=== PATIENT | male | born 1955 | race Caucasian/White ===

== ENCOUNTER 2025-03-05 22:54 | Inpatient (IN) | payer BC, MEDICARE, SELFPAY ==
[2025-03-05 19:05] VITALS: BP 162/92
[2025-03-05 19:11] VITALS: BMI 32.9
[2025-03-05 19:18] VITALS: BP 164/101
--- NOTE | 2025-03-05 19:30 | ED.GENMED ---
History of Present Illness
<Bill Daniels PA-C - Last Filed: 03/05/25 22:01>
General
Chief Complaint: Cancer Problem
Source: patient
Exam Limitations: none
Time Seen by Provider: 03/05/25 19:13
History of Present Illness
History of Present Illness:
69-year-old male with history of lung cancer currently on Taxol and recently stopped immunotherapy with Keytruda presents with increasing pain and worsening rash to the hands and feet. This has progressively gotten worse over the last 4 weeks since
starting the Taxol. No new shortness of breath or chest pain. No fever. No mouth discomfort. He has been using topical steroids as well as oral prednisone taper he also has been taking oxycodone without any significant relief of his pain. No
prior diagnosis of CHF but does have a history of CAD requiring stent in his LAD. He is also on metformin for prediabetes
Phy Exam
<Bill Daniels PA-C - Last Filed: 03/05/25 22:01>
Physical Exam
Physical Exam:
General: Well-appearing but uncomfortable male no acute respiratory distress
HEENT: Normal cephalic atraumatic mucosa moist no oral lesions
Heart: Regular rate and rhythm
Lungs: Clear no wheeze
Extremities: No cyanosis but there is edema noted in bilateral lower extremities
Skin: Patches of erythema that are painful and tender over the bilateral hands and feet
Course
<Bill Daniels PA-C - Last Filed: 03/05/25 22:01>
Orders/Labs/Results
Orders:
Orders
03/05/25 19:29
Complete Blood Count/With Diff Urgent
Comprehensive Metabolic Panel Urgent
NT-proBNP Urgent
Serum Osmolality Urgent
Comment: ADD ON
Dexamethasone Sod Phosphate [Decadron] 10 mg IV NOW STA
HYDROmorphone [Dilaudid] 1 mg IV NOW STA
03/05/25 19:34
CR Chest Portable - 1 View Urgent
Comment:
Reason For Exam: sob
Reason Study Needs to be Portable: Patient Unstable
03/05/25 20:52
HYDROmorphone [Dilaudid] 0.5 mg IV NOW STA
03/05/25 21:56
Add On- LAB Urgent
Tests Added?: serum OSM
Osmolality, Random Urine Urgent
Date Specimen was Collected: 03/05/25
Time Specimen was Collected: 21:58
Urine Sodium Urgent
Date Specimen was Collected: 03/05/25
Time Specimen was Collected: 21:58
03/05/25 21:57
Urinalysis Reflex To Culture Urgent
Date Specimen was Collected: 03/05/25
Time Specimen was Collected: 21:58
Abnormal Lab Results
03/05/25
19:29
RBC 3.50 L 10^6/uL
(4.70-6.10)
Hgb 11.7 L g/dL
(13.0-18.0)
Hct 33.4 L %
(39.0-52.0)
MCV 95.4 H fL
(80.0-94.0)
MCH 33.4 H pg
(27.0-31.0)
RDW 16.4 H %
(11.5-14.5)
Absolute Neuts (auto) 7.3 H 10^3/uL
(1.4-6.5)
Absolute Lymphs (auto) 1.1 L 10^3/uL
(1.2-3.4)
Neutrophils % 83.4 H %
(42.2-75.2)
Lymphocytes % 12.2 L %
(20.5-51.1)
Sodium 127 L mmol/L
(135-145)
Chloride 90 L mmol/L
(98-107)
Creatinine 0.6 L mg/dL
(0.7-1.3)
Glucose 120 H mg/dl
(70-99)
ALT 59 H U/L
(0-50)
03/05/25 19:29
03/05/25 19:29
Vital Signs
Initial and Last Documented VS:
Initial Vital Signs
Temp Pulse Resp BP Pulse Ox
98.0 F 78 20 162/92 98
03/05/25 19:05 03/05/25 19:05 03/05/25 19:05 03/05/25 19:05 03/05/25 19:05
Last Documented Vital Signs
Temp Pulse Resp BP Pulse Ox
98.0 F 86 16 158/91 93
03/05/25 19:05 03/05/25 21:30 03/05/25 20:45 03/05/25 20:00 03/05/25 21:30
<Poli Donald MD - Last Filed: 03/05/25 20:03>
Orders/Labs/Results
Orders:
Orders
03/05/25 19:29
Complete Blood Count/With Diff Urgent
Comprehensive Metabolic Panel Urgent
NT-proBNP Urgent
Serum Osmolality Urgent
Comment: ADD ON
Dexamethasone Sod Phosphate [Decadron] 10 mg IV NOW STA
HYDROmorphone [Dilaudid] 1 mg IV NOW STA
03/05/25 19:34
CR Chest Portable - 1 View Urgent
Comment:
Reason For Exam: sob
Reason Study Needs to be Portable: Patient Unstable
03/05/25 20:52
HYDROmorphone [Dilaudid] 0.5 mg IV NOW STA
03/05/25 21:56
Add On- LAB Urgent
Tests Added?: serum OSM
Osmolality, Random Urine Urgent
Date Specimen was Collected: 03/05/25
Time Specimen was Collected: 21:58
Urine Sodium Urgent
Date Specimen was Collected: 03/05/25
Time Specimen was Collected: 21:58
03/05/25 21:57
Urinalysis Reflex To Culture Urgent
Date Specimen was Collected: 03/05/25
Time Specimen was Collected: 21:58
Abnormal Lab Results
03/05/25
19:29
RBC 3.50 L 10^6/uL
(4.70-6.10)
Hgb 11.7 L g/dL
(13.0-18.0)
Hct 33.4 L %
(39.0-52.0)
MCV 95.4 H fL
(80.0-94.0)
MCH 33.4 H pg
(27.0-31.0)
RDW 16.4 H %
(11.5-14.5)
Absolute Neuts (auto) 7.3 H 10^3/uL
(1.4-6.5)
Absolute Lymphs (auto) 1.1 L 10^3/uL
(1.2-3.4)
Neutrophils % 83.4 H %
(42.2-75.2)
Lymphocytes % 12.2 L %
(20.5-51.1)
Sodium 127 L mmol/L
(135-145)
Chloride 90 L mmol/L
(98-107)
Creatinine 0.6 L mg/dL
(0.7-1.3)
Glucose 120 H mg/dl
(70-99)
ALT 59 H U/L
(0-50)
03/05/25 19:29
03/05/25 19:29
Vital Signs
Initial and Last Documented VS:
Initial Vital Signs
Temp Pulse Resp BP Pulse Ox
98.0 F 78 20 162/92 98
03/05/25 19:05 03/05/25 19:05 03/05/25 19:05 03/05/25 19:05 03/05/25 19:05
Last Documented Vital Signs
Temp Pulse Resp BP Pulse Ox
98.0 F 86 16 158/91 93
03/05/25 19:05 03/05/25 21:30 03/05/25 20:45 03/05/25 20:00 03/05/25 21:30
<Bill Daniels PA-C - Last Filed: 03/05/25 22:01>
*Pulse Oximetry
SaO2: 95
Oxygen Mode of Delivery: Room air
Patient hypoxic: no
*Critical Care Note
Total Time (30-74mins, 75-104mins- exclusive of procedures): Not Applicable
<Bill Daniels PA-C - Last Filed: 03/05/25 22:01>
Update Note
Update Note:
I spoke with patient's primary oncologist, Dr. Sal at cell phone number . He feels as though the patient's symptoms are from that of worsening allergic reaction to the Taxol when he is developing hands and feet syndrome.
Outpatient treatment has proven to be ineffective for him with oxycodone prednisone by mouth and topical steroids. Oncology recommended admission for pain control and supportive care. Fluids ordered pain medicine ordered
ED Attending Note
<Bill Daniels PA-C - Last Filed: 03/05/25 22:01>
-
Portions of this chart may have been created with voice recognition software.� Occasional wrong word or��sound alike� substitutions may have occurred due to the inherent limitations of voice recognition software.
<Poli Donald MD - Last Filed: 03/05/25 20:03>
ED Attending Note
Patient seen and examined by attending physician: Yes
I performed the substantive portion of visit, reviewed & personally made and approve the management plan that is documented in note by myself or BRITNEY.: Yes
ED Attending Note:
I have seen and evaluated the patient with a [id number] encounter. I have spoken to the [BRITNEY] and involved in the medical history, the physical exam, medical decision making.
Evaluation and management service: agree unless noted differently below.
Results interpretation: agree unless noted differently below.
69-year-old with history of lung cancer presenting to the emergency department with swelling and redness to his hands and feet. Patient is currently on chemotherapy. He went to his oncologist about it was related to his Keytruda so they stopped
the Keytruda. However symptoms have been persistent. He discussed with the oncologist again who said that is likely from Taxol. They will stop Taxol. We did discuss with patient's oncologist who recommended admission for pain management. It is
supportive care. Patient denies any fevers chills rash to his eyes mouth genitals. No sloughing of the skin. No other new medications. No antibiotics. On my evaluation patient is resting comfortably. He does have swelling to both his hands and
feet with associated redness. No sloughing of the skin. No signs of fluctuance induration or signs consistent with cellulitis. Will check blood work. Will admit for pain control. History and exam not consistent with SJS/10 or SSS
Discharge Plan
Departure
Patient Disposition: Admit
Date of Disposition: 03/05/25
Time of Disposition: 22:01
Presentation/result/management discussed w/ accepting MD/DO: Hospitalist
Discharge Problem:
Medication adverse effect
Prescriptions:
No Action
metformin 500 mg Tablet
500 mg PO DAILY
metformin 500 mg Tablet
250 mg PO HS
chlorthalidone 25 mg Tablet
25 mg PO DAILY
olanzapine 2.5 mg Tablet
PO DAILY
spironolactone 25 mg Tablet
25 mg PO DAILY
carvedilol 3.125 mg Tablet
3.125 mg PO BID
ondansetron 8 mg Tablet,Disintegrating
8 mg PO Q8H PRN (Reason: Cytokine Release Syndrome)
Rx Instructions:
unknown why PRN
hydroxyzine HCl 25 mg Tablet
25 mg PO HS
fluticasone propionate 50 mcg/actuation [place],Suspension
1 spray INTRANASAL PRN PRN (Reason: unknown)
ezetimibe 10 mg Tablet
10 mg PO DAILY
Breztri Aerosphere
Rx Instructions:
160 mcg 2 puff am
prednisone 20 mg Tablet
20 mg PO DAILY
oxycodone-acetaminophen [Percocet] 5-325 mg Tablet
1 tab PO Q6H PRN (Reason: pain)
roflumilast 250 mcg Tablet
500 mcg PO DAILY
Rx Instructions:
250 mcg in the am and hs
rivaroxaban 2.5 mg Tablet
2.5 mg PO BID
Referrals:
Ninfa Todd NP [Family Provider, Family Practice]
Interventions
Interventions:
*Risk Screen - Suicide Last Done: 03/05/25 19:11
*General Assessment Last Done: 03/05/25 19:05
*Neglect/Abuse Screening Last Done: 03/05/25 19:11
*ED COVID-19 Vaccine History Last Done: 03/05/25 19:11
*ED Influenza Vaccine History Last Done: 03/05/25 19:11
[facility] Risk Assessment Tool Last Done: 03/05/25 19:11
Discharge Date and Time
Print Language: VENEZUELAN
[2025-03-05 19:35] LABS: Hematocrit 33.4 % (39.0-52.0); Hemoglobin 11.7 g/dL (13.0-18.0); Mean Corp Hgb Conc. 35.0 g/dL (33.0-37.0); Mean Corpuscular Volume 95.4 fL (80.0-94.0); Nucleated Red Blood Cells % 0 % (-); Platelet Count 228 10^3/uL (130-400); Red Cell Dist. Width 16.4 % (11.5-14.5)
[2025-03-05] MEDS: DECADRON 10 MG IV (19:36)
[2025-03-05] MEDS: DILAUDID 1 MG IV (19:36)
[2025-03-05 19:48] LABS: ALT (SGPT) 59 U/L (0-50); AST (SGOT) 55 U/L (17-59); Albumin 4.0 g/dl (3.5-5.0); Alkaline Phosphatase 78 U/L (38-126); Blood Urea Nitrogen 18 mg/dl (9-20); Calcium 9.3 mg/dl (8.4-10.2); Carbon Dioxide 29 mmol/L (22-30); Chloride 90 mmol/L (98-107); Estimated Creatinine Clearance > 125 ml/min; Glucose 120 mg/dl (70-99); Potassium 3.5 mmol/L (3.5-5.1); Sodium 127 mmol/L (135-145); Total Protein 6.8 g/dl (6.3-8.2); eGFR > 60.00
[2025-03-05 20:00] VITALS: BP 158/91
[2025-03-05] MEDS: DILAUDID 0.5 MG IV ×2 (20:56→22:08)
[2025-03-05] MEDS: BENADRYL 25 MG IV (22:08)
[2025-03-05] MEDS: NSS 500 IV (22:10)
[2025-03-05 22:12] LABS: Urine Character Clear (Clear)
--- NOTE | 2025-03-05 22:24 | HPS.HSE ---
Family Physician
-
Family Physician: Ninfa Todd
Chief Complaint
-
Painful hands
History of Present Illness
69-year-old man with history of lung cancer presenting with swelling and redness to his hands and feet. Patient is currently on chemotherapy. His oncologist believes this is related to his Keytruda so they stopped the Keytruda. However symptoms
have persisted. Patient's oncologist who recommended admission for pain management and supportive care. Patient denies any fevers chills rash to his eyes mouth genitals. No sloughing of the skin. No other new medications. No antibiotics. IV
Dilaudid in the ED provided only momentary relief
Medical History
Past Medical History
Past Medical History: Reports Other
Additional Past Medical History:
Lung cancer on chemo
Essential HTN
NID DM
Past Surgical History: Reports Other
Additional Past Surgical History:
Lung resection
Social History
Tobacco: Non-smoker
Alcohol: Occasional
Personal:
Living: With Family
Family History
Family History: Not pertinent
Allergies / Home Medications
Allergies reflects when Allergies were last updated in [employer].
Home Medications with original date entered in [employer]
Allergy/Medication List:
Allergies
Allergy/AdvReac Type Severity Reaction Status Date / Time
gabapentin Allergy Unknown Verified 03/05/25 19:05
ticagrelor (From Brilinta) Allergy Unknown Verified 03/05/25 19:05
Home Medications
Breztri Aerosphere 03/05/25
carvedilol 3.125 mg tablet 3.125 mg PO BID 03/05/25
chlorthalidone 25 mg tablet 25 mg PO DAILY 03/05/25
ezetimibe 10 mg tablet 10 mg PO DAILY 03/05/25
fluticasone propionate 50 mcg/actuation nasal spray,suspension 1 spray intranasal PRN PRN unknown 03/05/25
hydroxyzine HCl 25 mg tablet 25 mg PO HS 03/05/25
metformin 500 mg tablet 250 mg PO HS 03/05/25
metformin 500 mg tablet 500 mg PO DAILY 03/05/25
olanzapine 2.5 mg tablet mg PO DAILY 03/05/25
ondansetron 8 mg disintegrating tablet 8 mg PO Q8H PRN Cytokine Release Syndrome 03/05/25
oxycodone-acetaminophen 5 mg-325 mg tablet (Percocet) 1 tab PO Q6H PRN pain 03/05/25
prednisone 20 mg tablet 20 mg PO DAILY 03/05/25
rivaroxaban 2.5 mg tablet 2.5 mg PO BID 03/05/25
roflumilast 250 mcg tablet 500 mcg PO DAILY 03/05/25
spironolactone 25 mg tablet 25 mg PO DAILY 03/05/25
Review of Systems
-
History Source: Patient
A 12 point ROS was completed and negative except as noted: Yes
Constitutional: Reports See HPI
Skin: Reports Rash
Physical Exam
Vital Signs
Vital Signs
Temp Pulse Resp BP Pulse Ox
98.0 F 86 16 158/91 93
03/05/25 19:05 03/05/25 21:30 03/05/25 20:45 03/05/25 20:00 03/05/25 21:30
Physical Exam
General: Well Developed, Well Nourished, No Apparent Distress, Comfortable and Obese
HEENT: NormoCephalic, Moist mucous membranes, Nose Appears Normal and Ears Appear Normal
Respiratory: Clear
Cardiac: S1/S2 and Regular Rhythm
GI: Soft, Non Tender and Non Distended
Musculoskeletal: No Clubbing, No Cyanosis and No Edema
Skin: Warm, Dry and Rash
Neuro: Awake, Alert and Oriented
Psych: Calm
Laboratory Results
-
03/05/25 19:29
03/05/25 19:29
Laboratory Results
Total Bilirubin 0.6 mg/dl (0.2-1.3) 03/05/25 19:29
AST 55 U/L (17-59) 03/05/25 19:29
ALT 59 U/L (0-50) H 03/05/25 19:29
Alkaline Phosphatase 78 U/L (38-126) 03/05/25 19:29
Data Reviewed
-
Lab Data: Labs Reviewed by me
Impression/Plan
-
IMPRESSION:
69 man with chemotherapy reaction on hands and feet. No other medical records in our system.
Oncology recommends admit for pain control
PLAN:
1. Medication reaction
IV steroids
IV pain meds
Oncology consult in am
Obtain med records in am
Full code
Rivaroxaban for DVTp
[2025-03-05 22:25] LABS: Urine Squamous Cell 0-2 /LPF (Few)
[2025-03-05 23:56] VITALS: BP 157/121
[2025-03-06] VITALS (14 sets, daily range): BP systolic 133–177; BP diastolic 80–115; BMI 33.2
[2025-03-06 00:39] LABS: Glucose - Point of Care 146 mg/dl (70-99)
[2025-03-06] MEDS: DILAUDID 1 MG IV (00:56)
[2025-03-06] MEDS: TYLENOL 650 MG PO ×6 (01:04→20:04)
--- NOTE | 2025-03-06 01:10 | W.PN.UPDATE ---
Update Note
Progress Note Update
Dilaudid SHIP'S OFFICER order placed as admitting physician discussed with the patient and daughter for pain management.
[2025-03-06] MEDS: DILAUDID PCA 30 IV (01:55)
[2025-03-06] MEDS: NSS 1000 IV (01:56)
--- NOTE | 2025-03-06 02:59 | PTCARENOTE ---
Pt. rec'd into room 2244 from ED AAOx3, VSS, NSR on the monitor. Ambulatory with minimal assist at baseline. Complaining of intermittent sharp bilateral hand and foot pain, level 8 out of 10. Hands and feet red and warm to touch- with blotchy
flat rash (red/pink scattered) and some peeling skin without draining. SWIMMING INSTRUCTOR ordered for pain management, okay to give Dilaudid 1 mg IV push x 1 until SWIMMING INSTRUCTOR set up per house provider Lisbeth . Dose given, pain decreased to a level 1-2 post
administration. ETCO2 and continuous pulse ox applied, Dilaudid SWIMMING INSTRUCTOR started (bolus only, no continuous rate). Pt. educated on how and when to push delivery button. Pt. currently sleeping but easily woken, pain well controlled at a level 1-2.
Fall precautions initiated, pt. verbalizes understanding.
[2025-03-06] MEDS: TYLENOL PO (05:00)
[2025-03-06 06:03] LABS: Hematocrit 31.9 % (39.0-52.0); Hemoglobin 10.7 g/dL (13.0-18.0); Mean Corp Hgb Conc. 33.5 g/dL (33.0-37.0); Mean Corpuscular Volume 98.2 fL (80.0-94.0); Platelet Count 199 10^3/uL (130-400); Red Cell Dist. Width 16.4 % (11.5-14.5)
[2025-03-06 06:28] LABS: Blood Urea Nitrogen 13 mg/dl (9-20); Calcium 8.7 mg/dl (8.4-10.2); Carbon Dioxide 29 mmol/L (22-30); Chloride 94 mmol/L (98-107); Estimated Creatinine Clearance > 125 ml/min; Glucose 129 mg/dl (70-99); Potassium 4.4 mmol/L (3.5-5.1); Sodium 129 mmol/L (135-145); eGFR > 60.00
--- NOTE | 2025-03-06 07:50 | W.PN.HOSP.TC ---
Addendum entered and electronically signed by John Sanders MD 03/06/25 19:53:
Attending Addendum-
I saw and evaluated the patient. I reviewed the resident�s note and agree with findings and plan as documented in the resident�s note. Sub: Seen with present. Overnight was placed Dilaudid ANIMAL PATHOLOGY TEACHER for extreme pain in hands and feet. Now greatly
improved. Denies itching. Full 12 point ROS reviewed and negative except as documented Exam: Vitals reviewed in chart GEN-NAD heart RRR lungs clear abd soft NT DN pos BS LE non pitting edema b/l hands and feet. Skin peeling b/l feet. Neuro AAOx3
Plan:
# Palmar Plantar Erythrodysesthesia/Hand Foot Syndrome
# lung cancer
- c/s onc, appreciate input
- transition from Dilaudid ANIMAL PATHOLOGY TEACHER to PO
- secondary to taxol therapy
- not systemic steroid responsive, taper PO steroids
- start topical steroid cream
- Benadryl PRN for pruritus
- F/U as OP with primary onc
# Hyponatremia- likely hypovolemic cont IVF repeat BMP in am
# HTN- Continue home medications: carvedilol, chlorthalidone, spironolactone
# Mood d/o- cont olanzapine
# SHAWN- 2L night oxygen
# DM2- Continue home metformin, monitor AccuCheck closely, start SSI
ACP
Patient consented to discuss, was with , time spent explanation of advance directives, changes in health status, patient�s health care wishes if the patient becomes unable to make health decisions, goals of care, code status, and prognosis 'yes
i want it all if needed'- 16 minutes
Time spent coordinating care, review of plan of care with resident, personally reviewed previous records in EMR, med rec, labs, radiology, d/w nursing, heme/onc- total time documented is exclusive of any additional time listed that was spent in
advance care planning discussion -�51 minutes
Original Note:
Today's Communication/Plan
-
Consulted oncology. Recommended diclofenac cream and cold compresses
consult podiatry
Transition to PO pain regimen
Taper steroids
Assessment / Plan
Assessment / Plan
69yoM PMH T2DM, CAD s/p DC with lung cancer currently on chemotherapy presenting with hand and food syndrome from taxol toxicity.
AFVSS. Pain uncontrollable on home medication. Transitioned to ANIMAL PATHOLOGY TEACHER. Pain well controlled on ANIMAL PATHOLOGY TEACHER, minimally using medication. Can transition to PO steroids and pain regimen. Oncology consulted provided suggestions such as cold compresses and
diclofenac cream.
#hand and foot syndrome
#taxol toxicity
#lung cancer
- Oncology consulted. Recommend diclofenac topical cream and cold compresses
- Podiatry consult placed. Concern for foot symptoms preceding this episode
- Continue pain management. Plan to transition to PO dilaudid off ANIMAL PATHOLOGY TEACHER today
- Taper steroids 10mg daily given this is not immunotherapy related, rather taxol toxicity
- Benadryl PRN for pruritus
#CAD
- Continue home medications: carvedilol, chlorthalidone, ezetimibe, rivaroxaban, spironolactone'
#SHAWN
- 2L night oxygen
#T2DM
- Continue home metformin
- On steroid taper. Corrective insulin in place as needed
Anticipated Discharge: Within 24 hours
Subjective/Interval History
-
Date of Service: March 06, 2025
Pt reports feeling well today, tolerating pain. He describes continued tenderness and swelling of hands and feet but improvement from presentation. He reports his feet are numb with peeling.
Pt reports mild symptoms of hand and feet peeling and swelling over the last couple of wks. Oncology initially treated this for possible keytruda toxicity and started on outpt steroids. Keytruda was stopped and pt only received taxol this thursday.
Symptoms increased in severity and became so painful pt reports he couldnt walk. Oncology sent oxycodone outpt that did not control pain, prompting his presentation.
Objective Data
-
Labs:
Laboratory Results
03/06/25
05:49
WBC 5.0
Hgb 10.7 L
Hct 31.9 L
Plt Count 199
Sodium 129 L
Potassium 4.4 D
Chloride 94 L
Carbon Dioxide 29
BUN 13
Creatinine 0.5 L
Glucose 129 H
Calcium 8.7
Vital Signs:
Vital Signs
Temp Pulse Resp BP Pulse Ox
98.4 F 83 20 153/93 97
03/06/25 07:21 03/06/25 06:30 03/06/25 07:21 03/06/25 03:35 03/06/25 07:21
I&O
03/05/25 03/06/25 03/07/25
06:59 06:59 06:59
Intake Total 660 / 660
Output Total 750 / 750
Balance -90 / -90
Review of Systems
-
History Source: Patient
All other systems: Reviewed and negative
Physical Exam
-
General: Well Developed, Well Nourished and Comfortable
HEENT: Normocephalic, Atraumatic, Moist Mucous Membranes and [place] Conjunctivae
Respiratory: Clear to Auscultation, Non Labored Respirations and Decreased Breath Sounds (RUL s/p lobectomy)
Cardiac: Regular Rhythm and S1/S2
GI: Soft, Nontender and Nondistended
Musculoskeletal: Other (bilateral hand and feet desquamation, pitting edema all 4 extremities, demarcated rash on palms of hands and feet beefy red lesions)
Skin: Warm, Dry and Other (rashes on extremities)
Neuro: AO x 3 and Nonfocal/Grossly Intact
Psych: Calm
[2025-03-06] MEDS: ZETIA 10 MG PO (07:56)
[2025-03-06 07:57] LABS: Glucose - Point of Care 143 mg/dl (70-99)
[2025-03-06] MEDS: ALDACTONE 25 MG PO (07:57)
[2025-03-06] MEDS: COREG 3.125 MG PO ×2 (07:57→20:04)
[2025-03-06] MEDS: DELTASONE 20 MG PO (07:57)
[2025-03-06] MEDS: GLUCOPHAGE 500 MG PO (07:57)
[2025-03-06] MEDS: XARELTO 2.5 MG PO ×2 (07:57→20:04)
[2025-03-06] MEDS: ZYPREXA 2.5 MG PO (07:57)
--- NOTE | 2025-03-06 08:26 | PTCARENOTE ---
Assumed care. Patient comfortable at rest. Hands/feet erythremia, swelling, dry sloughing skin. Eating breakfast. Oxygen at 2 liters NC 96%, occasional cough, diminished breath sounds. NSR, PVC's. Dilaudid STERILIZATION TECH bolus only 21.5 mg remaining in pump.
Using call sena for assistance
--- NOTE | 2025-03-06 11:12 | CM ---
Chart reviewed. Patient is independent of ADLS, lives with his in a split level, 0 AUGUSTUS, 0 DME. Patient received chemotherapy every Lbake morning at [facility] in [place]. Plan is for the patient to return home. CM to follow
[2025-03-06 12:01] LABS: Glucose - Point of Care 137 mg/dl (70-99)
[2025-03-06] MEDS: DICLOFENAC 1% TOPICAL GEL 4 GRAM TOPICAL ×3 (12:11→21:45)
--- NOTE | 2025-03-06 12:42 | CON.ONC ---
Consultation
-
Date Consultation Requested: 03/06/25
Date Consultation Performed: 03/06/25
Requesting Provider: Magaly Vallecillo MD
Performing Provider: Janet Garcia MD; Francy Shearer MD
Reason for Consultation: adverse chemotherapy reaction
Impression
Impression
Hand Foot Syndrome iso Taxol
Plan
Plan
- Discussed with pt, his , and primary team
- Diclofenac gel on BL hands (NOT feet) to help with inflammation
- Cold compresses to hands and feet for relief
- Vitamin B6 supplementation
- Wean IV steroids to oral taper
- Wean off CANDY DEPOSITING MACHINE OPERATOR to oral Dilaudid
- Recommend podiatry consult
- Outpatient follow-up with Dr. Sal for dose-adjustment vs. Keytruda rechallenge
Patient History
History of Present Illness
69-year-old male with history of HTN, CAD s/p LAD stent, prediabetes on Metformin, and lung cancer (follows with Dr. Sal) s/p RUL lobectomy 10/2024 currently on Taxol (last infusion on Thursday) and recently stopped immunotherapy with Keytruda
presents with increasing pain and worsening rash to the hands and feet. This has progressively gotten worse over the last 3-4 weeks since starting the Taxol. He and his state that his feet were in 'bad shape' prior to any chemotherapy,
however, never to the point of him not being able to walk. He visited his slime plant operator helper on the Thursday prior to admission and tried topical Vtama which further aggravated his hand and foot pain. He then tried topical steroids with oral prednisone
taper as well as oxycodone 60mg q4-6 hrs without any relief. His oncologist suspected Hand Foot Syndrome iso Taxol use and recommended inpatient admission for pain control. Rashid denies SOB, CP, fevers, chills, N/V, GI/ concerns. He endorses a
rash on his right thigh and bilateral calves that's a few months old. He was told by his oncologist that those rashes were benign and due to Keytruda.
Past-Medical/Surgical History
Past Medical History
Respiratory/Lungs Comments
COPD
Ex-Smoker
Home oxygen
Cardiovascular Comments
Cardiac arrest
Chest pain
Coronary artery disease
High blood pressure
Myocardial infarction
Gastrointestinal Comments
Constipation
Genitourinary/Reproductive Comments
kidney stones
Musculoskeletal Comments
No problem
Endocrine Comments
Diabetes - Oral agent
Eyes/Skin/Nose/Ears Comments
No Problem
Hematology-Immune Comments
Cancer lung cancer stage II
Psychiatric/Behavioral Health Comments
No Problems
Past Surgeries
right upper lobectomy 10/2024
hip surgery
shoulder surgery
hernia surgery
cardiac stent 09/2016
Other Health History
cancer
[place]
high cholesterol
HTN

Patient Medication
�Medication �Instructions �Recorded �Confirmed �Last Taken �Type
carvedilol 3.125 mg tablet 3.125 mg PO BID Blood Pressure 03/05/25 03/05/25 Unknown History
chlorthalidone 25 mg tablet 25 mg PO DAILY Fluid 03/05/25 03/05/25 Unknown History
Retention/Swelling
ezetimibe 10 mg tablet 10 mg PO DAILY High Cholesterol 03/05/25 03/05/25 Unknown History
fluticasone propionate 50 1 spray intranasal PRN PRN unknown 03/05/25 03/05/25 Unknown History
mcg/actuation nasal
spray,suspension
hydroxyzine HCl 25 mg tablet 25 mg PO HSPRN PRN sleep 03/05/25 03/06/25 Unknown History
metformin 500 mg tablet 250 mg PO HS Diabetes 03/05/25 03/05/25 Unknown History
metformin 500 mg tablet 500 mg PO DAILY Diabetes 03/05/25 03/05/25 Unknown History
olanzapine 2.5 mg tablet 2.5 mg PO DAILYPRN PRN refractory 03/05/25 03/06/25 Unknown History
nausea
ondansetron 8 mg disintegrating 8 mg PO Q8H PRN NAUSEA/VOMITING 03/05/25 03/05/25 Unknown History
tablet
oxycodone-acetaminophen 5 mg-325 1 tab PO Q6H PRN pain 03/05/25 03/05/25 Unknown History
mg tablet (Percocet)
prednisone 20 mg tablet 40 mg PO DAILY Anti-Inflammatory 03/05/25 03/06/25 Unknown History
rivaroxaban 2.5 mg tablet 2.5 mg PO BID Blood Clot 03/05/25 03/05/25 Unknown History
Prevention/Tx
roflumilast 250 mcg tablet 250 mcg PO DAILY Lung/Breathing 03/05/25 03/06/25 Unknown History
Issues
spironolactone 25 mg tablet 25 mg PO DAILY Fluid 03/05/25 03/05/25 Unknown History
Retention/Swelling
budesonide 160 mcg-glycopyr 9 2 inh inhalation BID 03/06/25 03/06/25 Unknown History
mcg-formot 4.8 mcg/actuation HFA
inhaler (Breztri Aerosphere)
carboplatin 10 mg/mL intravenous 1 mg IV DIRECTED Cancer 03/06/25 03/06/25 Unknown History
solution
paclitaxel 6 mg/mL 1 mg IV DIRECTED Cancer 03/06/25 03/06/25 Unknown History
concentrate,intravenous
pembrolizumab 25 mg/mL intravenous 1 mg IV DIRECTED Cancer 03/06/25 03/06/25 Unknown History
solution (Keytruda)
Active Medications
Generic Name Dose Route Start Last Admin
Trade Name Freq PRN Reason Stop Dose Admin
Acetaminophen 650 mg 03/06/25 00:00 03/06/25 12:11
Acetaminophen 325 Mg Tablet PO 04/03/25 00:00 650 mg
Q4HWA FREEMAN Administration
Bisacodyl 10 mg 03/05/25 23:49
Bisacodyl 10 Mg Rectal Suppository RECTAL 04/02/25 23:48
[id number] PRN
constipation
Carvedilol 3.125 mg 03/06/25 08:00 03/06/25 07:57
Carvedilol 3.125 Mg Tablet PO 04/03/25 07:59 3.125 mg
BID FREEMAN Administration
Chlorthalidone 25 mg 03/06/25 08:00 03/06/25 07:56
Chlorthalidone 25 Mg Tablet PO 04/03/25 07:59 25 mg
DAILY FREEMAN Administration
Dextrose 12.5 grams 03/06/25 03:00
Dextrose 50% (0.5 Grams/Ml) 50 Ml Syringe IV 04/03/25 02:59
[id number] PRN
hypoglycemia
Protocol
Diclofenac Sodium 0 gram 03/06/25 13:00 03/06/25 12:11
Diclofenac 1% Topical Gel 100 Gram Tube TOPICAL 04/03/25 12:59 4 gram
QID FREEMAN Administration
Protocol
Ezetimibe 10 mg 03/06/25 08:00 03/06/25 07:56
Ezetimibe (Zetia) 10 Mg Tablet PO 04/03/25 07:59 10 mg
DAILY FREEMAN Administration
Glucagon 1 mg 03/06/25 03:00
Glucagon 1 Mg Vial IM 04/03/25 02:59
PRN PRN
hypoglycemia - no IV access
Protocol
Heparin Sodium (Porcine) 500 unit 03/06/25 01:30
Heparin Flush Pf (100 Unit/Ml) 5 Ml Syringe IV 04/03/25 01:29
PER PROTOCOL FREEMAN
Hydromorphone HCl 1 mg 03/05/25 23:49 03/06/25 00:56
Hydromorphone 1 Mg/Ml Carpuject IV 03/19/25 23:48 1 mg
Q3HPRN PRN Administration
breakthrough pain
Hydroxyzine HCl 25 mg 03/06/25 22:00
Hydroxyzine 25 Mg Tablet PO 04/03/25 21:59
HS FREEMAN
Hydromorphone HCl 30 mg in 30 mls @ 0 mls/hr 03/06/25 02:00 03/06/25 01:55
Dilaudid Director Of Counterintelligence IV 30 mls
PER PROTOCOL FREEMAN Administration
Protocol
Per Protocol
Sodium Chloride 1,000 mls @ 40 mls/hr 03/06/25 01:45 03/06/25 01:56
Nss IV 1,000 mls
.Q24H PRN Administration
CANDY DEPOSITING MACHINE OPERATOR Protocol- IVF discontinued
Insulin Aspart 0 units 03/06/25 07:30 03/06/25 12:07
Insulin Aspart Low Resistance 300 Units/3 Ml Pen.Injctr SC 04/03/25 07:29 Not Given
AC FREEMAN
Protocol
Metformin HCl 500 mg 03/06/25 08:00 03/06/25 07:57
Metformin 500 Mg Regular Release Tablet PO 04/03/25 07:59 500 mg
DAILY FREEMAN Administration
Metformin HCl 250 mg 03/06/25 22:00
Metformin 500 Mg Regular Release Tablet PO 04/03/25 21:59
HS FREEMAN
Naloxone HCl 0.04 mg 03/05/25 23:49
Naloxone (0.4 Mg/Ml) 1 Ml Injection IV 04/02/25 23:48
Q2MPRN PRN
RR </= 10/min / Pasero scale=4
Non-Formulary Medication 500 mcg 03/06/25 08:00
Roflumilast PO 04/03/25 07:59
DAILY FREEMAN
Olanzapine 2.5 mg 03/06/25 08:00 03/06/25 07:57
Olanzapine 2.5 Mg Tablet PO 04/03/25 07:59 2.5 mg
DAILY FREEMAN Administration
Ondansetron HCl 8 mg 03/06/25 01:01
Ondansetron 4 Mg (Orally-Disintegrating) Tablet PO 04/03/25 01:00
Q8H PRN
NAUSEA/VOMITING
Polyethylene Glycol 17 grams 03/05/25 23:49
Polyethylene Glycol Powder 17 Grams Packet PO 04/02/25 23:48
DAILYPRN PRN
constipation
Prednisone 20 mg 03/06/25 08:00 03/06/25 07:57
Prednisone 20 Mg Tablet PO 04/03/25 07:59 20 mg
DAILY FREEMAN Administration
Rivaroxaban 2.5 mg 03/06/25 08:00 03/06/25 07:57
Rivaroxaban 2.5 Mg Tablet PO 04/03/25 07:59 2.5 mg
BID FREEMAN Administration
Senna/Docusate Sodium 1 tablet 03/05/25 23:49
Docusate W/Senna (Kanika-Colace) Tablet PO 04/02/25 23:48
BIDPRN PRN
constipation
Sodium Chloride 0.9 ml 03/05/25 23:49
Sodium Chloride 0.9% (Preservative Free) 10 Ml Vial IV 04/02/25 23:48
Q2MPRN PRN
naloxone dilution
Sodium Chloride 0 flush 03/06/25 01:00
Sodium Chloride 0.9% (Flush) Syringe IV 04/03/25 00:59
PER PROTOCOL FREEMAN
Spironolactone 25 mg 03/06/25 08:00 03/06/25 07:57
Spironolactone 25 Mg Tablet PO 04/03/25 07:59 25 mg
DAILY FREEMAN Administration
Review of Systems
-
History Source: Patient and Family
All Other Systems: Reviewed and Negative
Constitutional: Reports Fatigue
Musculoskeletal: Reports Joint Pain, Joint Swelling, Muscle Pain and Edema
Physical Exam
-
General: Well Developed, Well Nourished, No Apparent Distress and Comfortable
Cardiology: Normal Sinus Rhythm
GI: Soft and Normal Bowel Sounds
Musculoskeletal: Edema, Right Lower Extrem (improved from prior per pt) and Edema, Left Lower Extrem (improved from prior per pt)
Extremities: Pulses Present and Edema
Skin: Warm, Dry and Other (erythema of BL hands and feet, scaling at base of feet which pt says is chronic)
Psych: Calm and Intact Judgement/Insight
Labs
Lab Results
WBC 5.0 10^3/uL (4.8-10.8) 03/06/25 05:49
RBC 3.25 10^6/uL (4.70-6.10) L 03/06/25 05:49
Hgb 10.7 g/dL (13.0-18.0) L 03/06/25 05:49
Hct 31.9 % (39.0-52.0) L 03/06/25 05:49
MCV 98.2 fL (80.0-94.0) H 03/06/25 05:49
MCH 32.9 pg (27.0-31.0) H 03/06/25 05:49
MCHC 33.5 g/dL (33.0-37.0) 03/06/25 05:49
RDW 16.4 % (11.5-14.5) H 03/06/25 05:49
Plt Count 199 10^3/uL (130-400) 03/06/25 05:49
MPV 10.1 fL (7.4-10.4) 03/06/25 05:49
Abs Immat Gran (auto) 0.0 10^3/uL (0-0.05) 03/05/25 19:29
Absolute Neuts (auto) 7.3 10^3/uL (1.4-6.5) H 03/05/25 19:29
Absolute Lymphs (auto) 1.1 10^3/uL (1.2-3.4) L 03/05/25 19:29
Absolute Monos (auto) 0.3 10^3/uL (0.1-0.6) 03/05/25 19:
Absolute Eos (auto) 0.0 10^3/uL (0-0.7) 03/05/25 19:
Absolute Basos (auto) 0.0 10^3/uL (0-0.2) 03/05/25 19:
Immature Gran % 0.5 % (0-0.5) 03/05/25 19:
Neutrophils % 83.4 % (42.2-75.2) H 03/05/25:
Lymphocytes % 12.2 % (20.5-51.1) L 03/05/25 19:
Monocytes % 3.2 % (1.7-9.3) 03/05/25 19:
Eosinophils % 0.5 % (0-6) 03/05/25:
Basophils % 0.2 % (0-2) 03/05/25 19:
Creatinine 0.5 mg/dL (0.7-1.3) L 03/06/25 05:49
Vital Signs
Vital Signs
Temp Pulse Resp BP Pulse Ox
98.3 F 85 19 144/93 95
03/06/25 10:49 03/06/25 12:00 03/06/25 12:00 03/06/25 10:50 03/06/25 12:00
[2025-03-06] MEDS: BENADRYL 25 MG PO ×2 (16:24→21:45)
[2025-03-06] MEDS: DILAUDID 0.5 MG IV (16:37)
--- NOTE | 2025-03-06 16:43 | PTCARENOTE ---
Addendum entered by Poncho Bailey RN 03/06/25 17:14:
pain in hands 5 out 10. One time 0.5 mg IV Dilaudid bolus given through the WAXING MACHINE OPERATOR pump, Benadryl given earlier. Ice applied to hands and feet.
Original Note:
pain in hands 5 out 10. One time 0.5 mg IV Dilaudid bolus given, Benadryl given earlier. Ice applied to hands and feet.
[2025-03-06 16:50] LABS: Glucose - Point of Care 157 mg/dl (70-99)
[2025-03-06 19:32] LABS: Hepatitis C Antibody Negative (Negative)
[2025-03-06] MEDS: ATARAX 25 MG PO (21:45)
[2025-03-06] MEDS: GLUCOPHAGE 250 MG PO (21:45)
[2025-03-06 22:56] LABS: Glucose - Point of Care 137 mg/dl (70-99)
[2025-03-07] VITALS (8 sets, daily range): BP systolic 139–164; BP diastolic 85–103
[2025-03-07] MEDS: TYLENOL PO (00:04)
[2025-03-07] MEDS: NSS 1000 IV (02:34)
[2025-03-07] MEDS: TYLENOL 650 MG PO ×2 (04:10→08:54)
[2025-03-07 04:23] LABS: Hematocrit 30.7 % (39.0-52.0); Hemoglobin 10.4 g/dL (13.0-18.0); Mean Corp Hgb Conc. 33.9 g/dL (33.0-37.0); Mean Corpuscular Volume 100.0 fL (80.0-94.0); Platelet Count 192 10^3/uL (130-400); Red Cell Dist. Width 16.5 % (11.5-14.5)
[2025-03-07 04:47] LABS: ALT (SGPT) 49 U/L (0-50); AST (SGOT) 40 U/L (17-59); Albumin 3.5 g/dl (3.5-5.0); Alkaline Phosphatase 60 U/L (38-126); Blood Urea Nitrogen 17 mg/dl (9-20); Calcium 8.9 mg/dl (8.4-10.2); Carbon Dioxide 31 mmol/L (22-30); Chloride 98 mmol/L (98-107); Estimated Creatinine Clearance > 125 ml/min; Glucose 102 mg/dl (70-99); Potassium 3.9 mmol/L (3.5-5.1); Sodium 132 mmol/L (135-145); Total Protein 6.2 g/dl (6.3-8.2); eGFR > 60.00
[2025-03-07] MEDS: MIRALAX 17 GRAMS PO (08:53)
[2025-03-07] MEDS: GLUCOPHAGE 500 MG PO (08:54)
[2025-03-07] MEDS: XARELTO 2.5 MG PO ×2 (08:54→21:12)
[2025-03-07] MEDS: ZYPREXA 2.5 MG PO (08:54)
[2025-03-07] MEDS: COREG 3.125 MG PO ×2 (08:54→21:12)
[2025-03-07] MEDS: ALDACTONE 25 MG PO (08:54)
[2025-03-07] MEDS: DELTASONE 10 MG PO (08:54)
[2025-03-07] MEDS: ZETIA 10 MG PO (08:54)
[2025-03-07] MEDS: DICLOFENAC 1% TOPICAL GEL 100 GRAM TOPICAL ×4 (08:55→21:13)
[2025-03-07] MEDS: FLUSH (NSS) 1 FLUSH IV ×2 (08:55→10:27)
[2025-03-07 09:00] LABS: Glucose - Point of Care 147 mg/dl (70-99)
--- NOTE | 2025-03-07 09:39 | PTCARENOTE ---
Addendum entered by Brooklyn Gan RN 03/07/25 09:48:
+1-2 edema noted in BL hands. The right is greater than the left.
Original Note:
The patient is aaox3. His vital signs are stable. NSR is noted on the monitor. He has a Dilaudid accounts payable assistant pump running with no continuous administration, a 0.2mg injection, and a 15 minute lock out. He rates his pain in his BL hands a 2/10 on scale
without movement. However, when he does move his hands the pain is a 7/10 with movement. It is difficult for him to make a fist with both hands. Both hands have a flat red rash. The patient states that they are getting better. Diclofenac gel was
applied to both hands as ordered. Ice packs applied to both hands as ordered. His BL feet are dry and scaly.
--- NOTE | 2025-03-07 09:59 | PTCARENOTE ---
The patient has not had a BM since Thursday. He denied feeling constipated. However he agreed to taking Miralax this morning.
--- NOTE | 2025-03-07 10:18 | W.PN.ONC2 ---
Today's Communication / Plan
-
- Continue topical diclofenac and cool compresses to hands: Podiatry for feet
- Continue on oral prednisone 10 mg with plan to taper outpatient
- Wean off MACHINE PECAN GATHERER to oral pain regimen
- Dr. Huerta to resume care in outpatient setting
Impression
Impression
Hand Foot Syndrome iso Taxol
Plan
Plan
#Hand-foot syndrome, likely ISO Taxol
- Discussed with primary team that no role for IV steroids and treatment of hand-foot: Continue prednisone 10 mg daily with plan to taper outpatient
- Continue topical diclofenac and cold compresses to bilateral hands inpatient and outpatient
- Vitamin B6 supplementation
- Wean off MACHINE PECAN GATHERER to oral Dilaudid
- Recommend podiatry consult for feet as his foot pain is further exacerbated by chronic foot conditions
- Outpatient follow-up with Dr. Huerta for dose-adjustment vs. Keytruda rechallenge
Subjective/Objective
Chief Complaint
Bilateral hand and foot pain
Subjective
- This morning, he reports that his pain is much better than yesterday, however his hands are still swollen, right larger than left. The cold compresses offer him relief.
- He has not helped in walking around, but plans to later today.
Vital Signs:
Vital Signs
Temp Pulse Resp BP Pulse Ox
97.4 F 75 11 143/87 96
03/07/25 08:28 03/07/25 08:29 03/07/25 08:29 03/07/25 08:29 03/07/25 08:55
Lab Results:
Laboratory Data
WBC 5.7 10^3/uL (4.8-10.8) 03/07/25 04:05
Hgb 10.4 g/dL (13.0-18.0) L 03/07/25 04:05
Plt Count 192 10^3/uL (130-400) 03/07/25 04:05
eGFR > 60.00 12/16/25 04:05
Physical Exam
HEENT: Moist Mucous Membranes
Cardiology: Normal Sinus Rhythm
Pulmonary: Clear
GI: Soft
Extremities: Edema and Other (Bilateral hands erythematous, not tender to palpation. Right hand more edematous than the left on the dorsal side.)
Review of Systems
Review of Systems
Skin: Reports Rash and Other (Pain on bilateral hands and feet)
Orders
Orders
Orders From Last 24 Hours
03/06/25 13:00
Diclofenac 1% Topical Gel See Protocol TOPICAL QID
--- NOTE | 2025-03-07 10:33 | PTCARENOTE ---
Dilaudid ROOM SERVICE FOOD SERVICE ATTENDANT discontinued.
[2025-03-07] MEDS: DILAUDID 2 MG PO (11:43)
[2025-03-07 11:46] LABS: Glucose - Point of Care 89 mg/dl (70-99)
--- NOTE | 2025-03-07 11:46 | PTCARENOTE ---
The patient complained of BL hand pain in addition to BL foot pain. He states that he is now getting intermittent sharp pains in his feet and rates them it a 7/10 on scale. He rates his hands a 2/10 on scale. Dilaudid 2mg po given as ordered.
--- NOTE | 2025-03-07 13:46 | CM ---
Pricing on Dilaudid through the patient's [employer] [facility], ID# [id number], patient will need a prior authorization called into [phone]. Notified Dr. Vallecillo.
--- NOTE | 2025-03-07 13:48 | CM ---
Chart reviewed. Patient is indeepndent of [facility]S, lives with his in a split level, 0 AUGUSTUS, 0 DME. Plan is for the patient to return home. CM to follow
--- NOTE | 2025-03-07 13:59 | W.PN.HOSP.TC ---
Addendum entered and electronically signed by John Sanders MD 03/07/25 20:18:
Attending Addendum-
I saw and evaluated the patient. I reviewed the resident�s note and agree with findings and plan as documented in the resident�s note. Sub: pain better controlled in b/l UE and LE this am while being on dilaudid COFFEE HOST. States that it is effective and
would like to trial PO meds. Rash improving No other complaints. Full 12 point ROS reviewed and negative except as documented Exam: Vitals reviewed in chart GEN-NAD heart RRR lungs clear abd soft NT DN pos BS LE non pitting edema b/l hands and feet.
Skin peeling b/l feet. Neuro AAOx3
Plan:
# Palmar Plantar Erythrodysesthesia/Hand Foot Syndrome
# lung cancer
# uncontrolled pain requiring IV pain meds
- appreciate onc input
- attempt to transition from Dilaudid COFFEE HOST to PO- insurance issues requiring prior auth and inability to obtain meds as OP
- still requiring significant doses of Dilaudid via COFFEE HOST
- secondary to taxol therapy
- cont to taper PO steroids
- cont topical steroid cream
- Benadryl PRN for pruritus
- F/U as OP with primary onc
- attempt to switch to PO pain meds as able
# Hyponatremia- improving likely hypovolemic cont IVF repeat BMP in am
# HTN- Continue home medications: carvedilol, chlorthalidone, spironolactone
# Mood d/o- cont olanzapine
# SHAWN- 2L night oxygen
# DM2- Continue home metformin, monitor AccuCheck closely, cont SSI
DVTp- xarelto
Code Full
Dispo-DC home in am if pain better controlled on PO pain meds
Time spent coordinating care, review of plan of care with resident, personally reviewed records in EMR, med rec, consults, notes, labs, radiology, d/w nursing CM PCP and onc� 52 mins
Original Note:
Today's Communication/Plan
-
Transition to PO morphine
Hold COFFEE HOST
Assessment / Plan
Assessment / Plan
69yoM PMH T2DM, CAD s/p MD with lung cancer currently on chemotherapy presenting with hand and food syndrome from taxol toxicity.
AFVSS. Pain uncontrollable on home medication. Transitioned to COFFEE HOST. Pain well controlled on COFFEE HOST, minimally using medication. Can transition to PO steroids and pain regimen. Oncology consulted provided suggestions such as cold compresses and
diclofenac cream.
Today, AFVSS. Pain yesterday was tolerable until 5pm. Shared decision with pt to continue COFFEE HOST overnight due to increased severity in the evening. Pt used 4.8mg dilaudid overnight. He reported being tired due to the need to push the button. Pain
improved and controlled on COFFEE HOST by morning. Pt amenable to switching to PO regimen as swelling and rash are improving. Plan to switch to PO pain medication and evaluate if he tolerates it before dc.
#hand and foot syndrome
#taxol toxicity
#lung cancer
- Oncology consulted. Recommend diclofenac topical cream and cold compresses
- Podiatry consult placed. Concern for foot symptoms preceding this episode
- Continue pain management. Plan to transition to PO dilaudid off COFFEE HOST today. Plan to transition to PO dilaudid. CM called insurance and found that oral dilaudid needs prior auth. Outpt oncologist plans on ordering PO dilaudid outpt
- Taper steroids 10mg daily given this is not immunotherapy related, rather taxol toxicity
- Benadryl PRN for pruritus
#CAD
- Continue home medications: carvedilol, chlorthalidone, ezetimibe, rivaroxaban, spironolactone'
#SHAWN
- 2L night oxygen
#T2DM
- Continue home metformin
- On steroid taper. Corrective insulin in place as needed
Anticipated Discharge: Within 24 hours
Subjective/Interval History
-
Date of Service: March 07, 2025
Pt reports improved symptoms. He had a bout of severe pain at around 5pm last night that was managed with COFFEE HOST overnight. He reports feeling better this morning with hoeps of transitioning to PO. He reports angélica burning is improved, main complaint
being the swelling.
Objective Data
-
Labs:
Laboratory Results
03/07/25
04:05
WBC 5.7
Hgb 10.4 L
Hct 30.7 L
Plt Count 192
Sodium 132 L
Potassium 3.9
Chloride 98
Carbon Dioxide 31 H
BUN 17
Creatinine 0.6 L
Glucose 102 H
Calcium 8.9
Total Bilirubin 0.5
AST 40
ALT 49
Alkaline Phosphatase 60
Vital Signs:
Vital Signs
Temp Pulse Resp BP Pulse Ox
97.3 F 69 20 146/89 96
03/07/25 11:15 03/07/25 11:19 03/07/25 11:19 03/07/25 11:19 03/07/25 11:19
I&O
03/06/25 03/07/25 03/08/25
06:59 06:59 06:59
Intake Total 660 / 660 2800 / 2800 360 / 360
Output Total 750 / 750 1170 / 1170
Balance -90 / -90 1630 / 1630 360 / 360
Review of Systems
-
History Source: Patient
All other systems: Reviewed and negative
Physical Exam
-
General: Well Developed, Well Nourished and No Apparent Distress
HEENT: Normocephalic, Atraumatic and Moist Mucous Membranes
Respiratory: Wheezes (R side, pt due for morning inhaler) and Non Labored Respirations
Cardiac: Regular Rhythm and S1/S2
GI: Soft, Nontender and Nondistended
Musculoskeletal: Other (edema of 4 extremities improved but still evident, R>L hand, demarcated line around palms most tender, less erythematous rash)
Skin: Warm and Dry
Neuro: AO x 3 and Nonfocal/Grossly Intact
Psych: Calm
--- NOTE | 2025-03-07 14:41 | CM ---
Pricing on Morphine through the patient's [employer] [facility] is covered at $0 copay but needs a prior authorization called into [phone]
[2025-03-07] MEDS: DILAUDID 4 MG PO (15:21)
[2025-03-07] MEDS: TYLENOL 1000 MG PO ×2 (16:33→21:11)
--- NOTE | 2025-03-07 16:36 | PTCARENOTE ---
Addendum entered by Brooklyn Gan RN 03/07/25 16:41:
When he is just sitting there, the pain in his feet are a 3-4/10 on scale. He states that the sharp shooting pains come and go every few minutes.
Original Note:
The patient received 4mg of PO Dilaudid at 1521 for a pain of 6/10 in his BL hands and feet. One hour post pain administration the patient stated that his hand do not feel any better and rates them a 6/10 on scale. His feet however, he says is
getting worse with sharp shooting intermittent pains and rates it an 8/10 on scale. He said it started after he got up and walked to the bathroom. I gave him his scheduled 1000mg of Tylenol.
[2025-03-07 16:45] LABS: Glucose - Point of Care 108 mg/dl (70-99)
--- NOTE | 2025-03-07 17:33 | PTCARENOTE ---
The patient stated that the pain in his hands and feet feel better since the Tylenol. He says his feet are now just throbbing and so have his hands.
[2025-03-07] MEDS: ATARAX 25 MG PO (21:12)
[2025-03-07] MEDS: GLUCOPHAGE PO (21:17)
[2025-03-07] MEDS: GLUCOPHAGE 250 MG PO (21:21)
[2025-03-07 21:33] LABS: Glucose - Point of Care 105 mg/dl (70-99)
[2025-03-08] MEDS: ROXICODONE 10 MG PO ×4 (00:10→15:08)
--- NOTE | 2025-03-08 00:18 | PTCARENOTE ---
Received pt at change of shift resting in bed. pt AAOx3, but confused @ x's; easily reoriented. SR on tele, HR 70's. pt denies any CP or SOB at this time. b/l hands and feet w/ red, painful rash. Diclofenac cream applied to hands per order. pt
reporting pain in hands and feet as 6/10, PRN Roula administered per pt request--see MAY. Encouraged pt to call RN for assistance ambulating and w/ any questions/concerns; pt verbalizes understanding and calls appropriately. Call sena within reach.
[2025-03-08 02:40] VITALS: BP 157/94
[2025-03-08 03:43] LABS: Hematocrit 31.5 % (39.0-52.0); Hemoglobin 10.6 g/dL (13.0-18.0); Mean Corp Hgb Conc. 33.7 g/dL (33.0-37.0); Mean Corpuscular Volume 101.6 fL (80.0-94.0); Platelet Count 192 10^3/uL (130-400); Red Cell Dist. Width 16.8 % (11.5-14.5)
[2025-03-08 04:06] LABS: ALT (SGPT) 67 U/L (0-50); AST (SGOT) 66 U/L (17-59); Albumin 3.4 g/dl (3.5-5.0); Alkaline Phosphatase 64 U/L (38-126); Blood Urea Nitrogen 14 mg/dl (9-20); Calcium 9.1 mg/dl (8.4-10.2); Carbon Dioxide 30 mmol/L (22-30); Chloride 99 mmol/L (98-107); Estimated Creatinine Clearance > 125 ml/min; Glucose 93 mg/dl (70-99); Potassium 4.0 mmol/L (3.5-5.1); Sodium 133 mmol/L (135-145); Total Protein 6.0 g/dl (6.3-8.2); eGFR > 60.00
[2025-03-08 08:04] VITALS: BP 154/122
[2025-03-08] MEDS: ZETIA 10 MG PO (08:46)
[2025-03-08] MEDS: GLUCOPHAGE 500 MG PO (08:46)
[2025-03-08] MEDS: TYLENOL 1000 MG PO (08:47)
[2025-03-08] MEDS: ZYPREXA 2.5 MG PO (08:47)
[2025-03-08] MEDS: DICLOFENAC 1% TOPICAL GEL 100 GRAM TOPICAL ×2 (08:47→14:48)
[2025-03-08] MEDS: MIRALAX 17 GRAMS PO (08:47)
[2025-03-08] MEDS: DELTASONE 10 MG PO (08:47)
[2025-03-08] MEDS: XARELTO 2.5 MG PO (08:47)
[2025-03-08] MEDS: COREG 3.125 MG PO (08:47)
[2025-03-08 08:50] LABS: Glucose - Point of Care 89 mg/dl (70-99)
[2025-03-08] MEDS: ALDACTONE 25 MG PO (08:52)
--- NOTE | 2025-03-08 09:15 | W.PN.HOSP.TC ---
Addendum entered and electronically signed by John Sanders MD 03/08/25 22:47:
Attending Addendum-
I saw and evaluated the patient. I reviewed the resident�s note and agree with findings and plan as documented in the resident�s note. Sub: pain much better controlled in b/l UE and LE this s/p oxycodone. Rash improving No other complaints. Wantsto
go home. Full 12 point ROS reviewed and negative except as documented Exam: Vitals reviewed in chart GEN-NAD heart RRR lungs clear abd soft NT DN pos BS LE non pitting edema b/l hands and feet. Skin peeling b/l feet. Neuro AAOx3
Plan:
# Palmar Plantar Erythrodysesthesia/Hand Foot Syndrome
# lung cancer
# controlled pain on po meds
- appreciate onc input
- secondary to taxol therapy
- cont to taper PO steroids
- cont topical steroid cream
- Benadryl PRN for pruritus
- F/U as OP with primary onc
# Hyponatremia- improving likely hypovolemic
# HTN- Continue home medications: carvedilol, chlorthalidone, spironolactone
# Mood d/o- cont olanzapine
# SHAWN- 2L night oxygen
# DM2- Continue home metformin, monitor AccuCheck closely, cont SSI
DVTp- xarelto
Code Full
Dispo-DC home prior auth obtained by primary onc! hanid available at pharmacy.
Time spent coordinating care, DC planning, review of DC plan of care with resident, transition of care, review of records, med rec/scripts sent electronically, consults, notes, d/w consultants, nursing, and CM�35 mins >50% of this time was devoted
to counseling and coordination of care
Original Note:
Today's Communication/Plan
-
Discharge today
Follow up with oncologist
Assessment / Plan
Assessment / Plan
69yoM PMH T2DM, CAD s/p NC with lung cancer currently on chemotherapy presenting with hand and food syndrome from taxol toxicity.
AFVSS. Pain uncontrollable on home medication. Transitioned to HORSE TREKKING GUIDE. Pain well controlled on HORSE TREKKING GUIDE, minimally using medication. Can transition to PO steroids and pain regimen. Oncology consulted provided suggestions such as cold compresses and
diclofenac cream.
AFVSS. Pain yesterday was tolerable until 5pm. Shared decision with pt to continue HORSE TREKKING GUIDE overnight due to increased severity in the evening. Pt used 4.8mg dilaudid overnight. He reported being tired due to the need to push the button. Pain improved
and controlled on HORSE TREKKING GUIDE by morning. Pt amenable to switching to PO regimen as swelling and rash are improving. Plan to switch to PO pain medication and evaluate if he tolerates it before dc.
Today, pt reports controlled pain on oxycodone. Plans to send home on oxycodone and follow closely with oncology if further pain medication is needed. Edema and erythema improving each day, continues to be tender but tolerable on current regimen.
#hand and foot syndrome
#taxol toxicity
#lung cancer
- Oncology consulted. Recommend diclofenac topical cream and cold compresses
- Podiatry consult placed. Concern for foot symptoms preceding this episode
- Continue pain management. Plan to transition to PO dilaudid off HORSE TREKKING GUIDE today. Plan to transition to PO dilaudid. CM called insurance and found that oral dilaudid needs prior auth. Outpt oncologist plans on ordering PO dilaudid outpt. Can prescribe
bridge oxycodone until prior auth is approved
- Taper steroids 10mg daily given this is not immunotherapy related, rather taxol toxicity
- Benadryl PRN for pruritus
#CAD
- Continue home medications: carvedilol, chlorthalidone, ezetimibe, rivaroxaban, spironolactone'
#SHAWN
- 2L night oxygen
#T2DM
- Continue home metformin
- On steroid taper. Corrective insulin in place as needed.
Anticipated Discharge: Today
Subjective/Interval History
-
Date of Service: March 08, 2025
Pt reports tolerable pain this morning. He reports the oxycodone he received at 5am ameliorated the pain appropriately.
Objective Data
-
Labs:
Laboratory Results
03/08/25
02:51
WBC 4.4 L
Hgb 10.6 L
Hct 31.5 L
Plt Count 192
Sodium 133 L
Potassium 4.0
Chloride 99
Carbon Dioxide 30
BUN 14
Creatinine 0.6 L
Glucose 93
Calcium 9.1
Total Bilirubin 0.6
AST 66 H
ALT 67 H
Alkaline Phosphatase 64
Vital Signs:
Vital Signs
Temp Pulse Resp BP Pulse Ox
98.4 F 73 18 154/122 95
03/08/25 08:04 03/08/25 08:47 03/08/25 08:04 03/08/25 08:47 03/08/25 08:04
I&O
03/07/25 03/08/25 03/09/25
06:59 06:59 06:59
Intake Total 2800 / 2800 780 / 780
Output Total 1170 / 1170 1750 / 1750
Balance 1630 / 1630 -970 / -970
Review of Systems
-
History Source: Patient
All other systems: Reviewed and negative
Physical Exam
-
General: Well Developed, Well Nourished, No Apparent Distress and Comfortable
HEENT: Normocephalic, Atraumatic and Moist Mucous Membranes
Respiratory: Clear to Auscultation (diminished RL) and Non Labored Respirations
Cardiac: Regular Rhythm and S1/S2
GI: Soft, Nontender and Nondistended
Musculoskeletal: Other (all4 extremity swelling reduced, nonpitting, demarcated line along palm and soles, erythema improved today across hands and feet, tender, desquamation improved on hands)
Skin: Warm and Dry
Neuro: AO x 3 and Nonfocal/Grossly Intact
Psych: Calm
[2025-03-08 11:03] VITALS: BP 116/69
--- NOTE | 2025-03-08 11:46 | PTCARENOTE ---
Pt is AOx3, complains of pain, given PRN medication as ordered. Standby assist OOB. SR on tele monitor, VSS. Plan for discharge later today. Call sena within reach.
[2025-03-08 12:24] LABS: Glucose - Point of Care 103 mg/dl (70-99)
--- NOTE | 2025-03-08 13:25 | W.PN.POD ---
Today's Communication
Today's Communication
foot and hand syndrome/xerosis
Assessment / Plan
-
Palmar Plantar Erythrodysesthesia/Hand Foot Syndrome
lung cancer
Xerosis bilateral feet with skin fissures.
Recommend Ammonium lactate 12% skin cream daily
Discussed foot care and the importance of daily emollients.
continue po steriod taper and benadryl prn
Subjective
Chief Complaint
69-year-old man with history of lung cancer presenting with swelling and redness to his hands and feet. Patient is currently on chemotherapy. His oncologist believes this is related to his Keytruda so they stopped the Keytruda. Podiatry consulted
for foot evaluation
Past Medical History
Lung cancer on chemo
Essential HTN
NID DM
Past Surgical History:
Lung resection
Social History
Tobacco: Non-smoker
Alcohol: Occasional
Personal:
Living: With Family
Family History
Not pertinent
Allergies
Allergy/AdvReac Type Severity Reaction Status Date / Time
gabapentin Allergy Unknown Verified 03/05/25 19:05
ticagrelor (From Brilinta) Allergy Unknown Verified 03/05/25 19:05
Home Medications
Breztri Aerosphere 03/05/25
carvedilol 3.125 mg tablet 3.125 mg PO BID 03/05/25
chlorthalidone 25 mg tablet 25 mg PO DAILY 03/05/25
ezetimibe 10 mg tablet 10 mg PO DAILY 03/05/25
fluticasone propionate 50 mcg/actuation nasal spray,suspension 1 spray intranasal PRN PRN unknown 03/05/25
hydroxyzine HCl 25 mg tablet 25 mg PO HS 03/05/25
metformin 500 mg tablet 250 mg PO HS 03/05/25
metformin 500 mg tablet 500 mg PO DAILY 03/05/25
olanzapine 2.5 mg tablet mg PO DAILY 03/05/25
ondansetron 8 mg disintegrating tablet 8 mg PO Q8H PRN Cytokine Release Syndrome 03/05/25
oxycodone-acetaminophen 5 mg-325 mg tablet (Percocet) 1 tab PO Q6H PRN pain 03/05/25
prednisone 20 mg tablet 20 mg PO DAILY 03/05/25
rivaroxaban 2.5 mg tablet 2.5 mg PO BID 03/05/25
roflumilast 250 mcg tablet 500 mcg PO DAILY 03/05/25
spironolactone 25 mg tablet 25 mg PO DAILY 03/05/25
Objective
Temp Pulse Resp BP Pulse Ox
97.5 F 64 18 116/69 90
03/08/25 11:03 03/08/25 11:03 03/08/25 11:03 03/08/25 11:03 03/08/25 11:03
03/08/25 02:51
03/08/25 02:51
Vital Signs and Lab results were reviewed.
Physical Exam
Physical Exam
Neurovascular status int act, foot well perfused, generalized foot edema. Faint erythema on plantar aspect, skin is dry and cracked. There are deep fissures bilterally that appear non infected.
--- NOTE | 2025-03-08 13:58 | CM ---
Priced oxycodone through the patient's [facility] and they told me all opioids need a prior authorization. Notified Dr Vallecillo
[2025-03-08 15:12] VITALS: BP 155/81
--- NOTE | 2025-03-08 17:58 | W.DCSUMMARY ---
Addendum entered and electronically signed by John Sanders MD 03/08/25 22:49:
Read, reviewed, and agree. See same day progress note for additional details. Dilaudid prn sent to pharmacy by primary onc.
Marky Sanders MD
Original Note:
Documented by User: Magaly Vallecillo MD, Resident 03/08/25 18:05
Discharge Summary
Discharge Data
Date of Admission: 03/05/25
Date of Discharge: 03/08/25
-
Pending Results: No
Hospital Course
69yoM PMH T2DM, CAD s/p IA with lung cancer currently on chemotherapy presenting with hand and food syndrome from taxol toxicity.
03/06/25 AFVSS. Pain uncontrollable on home medication leading to presentation. Transitioned to SOFT MUD MOLDER. Pain well controlled on SOFT MUD MOLDER, minimally using medication. Can transition to PO steroids and pain regimen. Reduced to 10mg prednisone. Oncology
consulted provided suggestions such as cold compresses and diclofenac cream. Continued on home cardiac medications and metformin for T2DM with 2L oxygen overnight for SHAWN. PRN Benadryl for pruritis.
03/07/25 AFVSS. Pain yesterday was tolerable until 5pm. Shared decision with pt to continue SOFT MUD MOLDER overnight due to increased severity in the evening. Pt used 4.8mg dilaudid overnight. He reported being tired due to the need to push the button. Pain
improved and controlled on SOFT MUD MOLDER by morning. Pt amenable to switching to PO regimen as swelling and rash are improving. Plan to switch to PO pain medication and evaluate if he tolerates it before dc.
03/08/25 Today, pt reports controlled pain on oxycodone. Plans to send home on oxycodone and follow closely with oncology if further pain medication is needed. Edema and erythema improving each day, continues to be tender but tolerable on current
regimen. Podiatry added urea cream.
Discharge Plan
-
Patient Disposition: Home (Routine Discharge)
Discharge Diagnosis/Procedures: taxol toxicity hand and foot syndrome
lung cancer
hyponatremia
hypertension
SHAWN
NIDDM
Condition: Good
Diet: No restrictions
Activity: As tolerated
Driving Restrictions: no driving while taking opioids
Bathing Restrictions: None
Wound Care: Apply diclofenac cream as needed per bottle instructions
Referrals:
Ninfa Todd NP [Family Provider, [facility]]
Additional Discharge Medication Instructions: Take tylenol 1000mg three times a day while you are experiencing pain. You can take 10mg oxycodone every 6 hrs as needed. Take miralax or stool softener as needed with opioid medications.
We will finish your steroid taper. Take 10mg prednisone for 3 more days.
Please follow up with your PCP regarding elevated BP. BP may be elevated secondary to pain, so it is important to follow up with primary care after to recheck BP.
Prescriptions:
New
diclofenac sodium 1 % Gel
50 g topical QID Qty: 50 0RF
naloxone 0.4 mg/mL Solution
0.04 mg IV Q2MPRN PRN (Reason: RR </= 10/min / Pasero scale=4) Qty: 10 0RF
prednisone 10 mg Tablet
10 mg PO DAILY 3 Days Qty: 3 0RF
urea 40 % cream
1 applic topical DAILY 5 Days Qty: 1 0RF
Continued
metformin 500 mg Tablet
500 mg PO DAILY
metformin 500 mg Tablet
250 mg PO HS
chlorthalidone 25 mg Tablet
25 mg PO DAILY
olanzapine 2.5 mg Tablet
2.5 mg PO DAILYPRN PRN (Reason: refractory nausea)
spironolactone 25 mg Tablet
25 mg PO DAILY
carvedilol 3.125 mg Tablet
3.125 mg PO BID
ondansetron 8 mg Tablet,Disintegrating
8 mg PO Q8H PRN (Reason: NAUSEA/VOMITING)
hydroxyzine HCl 25 mg Tablet
25 mg PO HSPRN PRN (Reason: sleep)
fluticasone propionate 50 mcg/actuation [place],Suspension
1 spray INTRANASAL PRN PRN (Reason: unknown)
ezetimibe 10 mg Tablet
10 mg PO DAILY
oxycodone-acetaminophen [Percocet] 5-325 mg Tablet
1 tab PO Q6H PRN (Reason: pain)
roflumilast 250 mcg Tablet
250 mcg PO DAILY
Rx Instructions:
250 mcg in the am and hs
rivaroxaban 2.5 mg Tablet
2.5 mg PO BID
Breztri Aerosphere 160-9-4.8 mcg/actuation HFA aerosol inhaler
2 inh INHALATION BID
paclitaxel 6 mg/mL Concentrate
1 mg IV DIRECTED
carboplatin 10 mg/mL Solution
1 mg IV DIRECTED
Keytruda 25 mg/mL Solution
1 mg IV DIRECTED
Discontinued
prednisone 20 mg Tablet
40 mg PO DAILY
Discharge Orders:
Discharge Patient (As Directed); Ordered 03/08/25
Ordered By: Magaly Vallecillo
Care Plan Goals
Care Plan Goals:
Problem: Readiness for enhanced knowledge related to diagnosis and treatment plan
Goal: Understand your diagnosis and treatment plan needs, including medications if applicable.
Instructions: Know your diagnosis, underlying causes and treatment plan options, including medications if applicable. Consult with your health care team to learn about your diagnosis and treatment plan, including medications if applicable.
Discharge Date and Time
Discharge Date/Time: 03/08/25 15:55
Print Language: JAPANESE

Documented by User: John Sanders MD 03/08/25 22:44
Discharge Summary
Discharge Data
Date of Admission: 03/05/25
Date of Discharge: 03/08/25
Discharge Plan
-
Patient Disposition: Home (Routine Discharge)
Discharge Diagnosis/Procedures: taxol toxicity hand and foot syndrome
lung cancer
hyponatremia
hypertension
SHAWN
NIDDM
Condition: Good
Diet: No restrictions
Activity: As tolerated
Driving Restrictions: no driving while taking opioids
Bathing Restrictions: None
Wound Care: Apply diclofenac cream as needed per bottle instructions
Referrals:
Ninfa Todd NP [Family Provider, [facility]]
Additional Discharge Medication Instructions: Take tylenol 1000mg three times a day while you are experiencing pain. You can take 10mg oxycodone every 6 hrs as needed. Take miralax or stool softener as needed with opioid medications.
We will finish your steroid taper. Take 10mg prednisone for 3 more days.
Please follow up with your PCP regarding elevated BP. BP may be elevated secondary to pain, so it is important to follow up with primary care after to recheck BP.
Prescriptions:
New
diclofenac sodium 1 % Gel
50 g topical QID Qty: 50 0RF
naloxone 0.4 mg/mL Solution
0.04 mg IV Q2MPRN PRN (Reason: RR </= 10/min / Pasero scale=4) Qty: 10 0RF
prednisone 10 mg Tablet
10 mg PO DAILY 3 Days Qty: 3 0RF
urea 40 % cream
1 applic topical DAILY 5 Days Qty: 1 0RF
Continued
metformin 500 mg Tablet
500 mg PO DAILY
metformin 500 mg Tablet
250 mg PO HS
chlorthalidone 25 mg Tablet
25 mg PO DAILY
olanzapine 2.5 mg Tablet
2.5 mg PO DAILYPRN PRN (Reason: refractory nausea)
spironolactone 25 mg Tablet
25 mg PO DAILY
carvedilol 3.125 mg Tablet
3.125 mg PO BID
ondansetron 8 mg Tablet,Disintegrating
8 mg PO Q8H PRN (Reason: NAUSEA/VOMITING)
hydroxyzine HCl 25 mg Tablet
25 mg PO HSPRN PRN (Reason: sleep)
fluticasone propionate 50 mcg/actuation [place],Suspension
1 spray INTRANASAL PRN PRN (Reason: unknown)
ezetimibe 10 mg Tablet
10 mg PO DAILY
oxycodone-acetaminophen [Percocet] 5-325 mg Tablet
1 tab PO Q6H PRN (Reason: pain)
roflumilast 250 mcg Tablet
250 mcg PO DAILY
Rx Instructions:
250 mcg in the am and hs
rivaroxaban 2.5 mg Tablet
2.5 mg PO BID
Breztri Aerosphere 160-9-4.8 mcg/actuation HFA aerosol inhaler
2 inh INHALATION BID
paclitaxel 6 mg/mL Concentrate
1 mg IV DIRECTED
carboplatin 10 mg/mL Solution
1 mg IV DIRECTED
Keytruda 25 mg/mL Solution
1 mg IV DIRECTED
Discontinued
prednisone 20 mg Tablet
40 mg PO DAILY
Discharge Orders:
Discharge Patient (As Directed); Ordered 03/08/25
Ordered By: Magaly Vallecillo
Care Plan Goals
Care Plan Goals:
Problem: Readiness for enhanced knowledge related to diagnosis and treatment plan
Goal: Understand your diagnosis and treatment plan needs, including medications if applicable.
Instructions: Know your diagnosis, underlying causes and treatment plan options, including medications if applicable. Consult with your health care team to learn about your diagnosis and treatment plan, including medications if applicable.
Discharge Date and Time
Discharge Date/Time: 03/08/25 15:55
Print Language: JAPANESE
== END 2025-03-08 15:55 | disposition home or self-care (01) | DRG 607 ==
LOC: IVU 22:54
PROVIDERS: Physician Assistant; ADMITTING PHYSICIAN Internal Medicine; ATTENDING PHYSICIAN Family Medicine; EMERGENCY PHYSICIAN Student in an Organized Health Care Education/Training Program; FAMILY PHYSICIAN Nurse Practitioner Family; OTHER PHYSICIAN Internal Medicine Hematology & Oncology
DX: L27.1 Localized skin eruption due to drugs and medicaments taken internally (principal); C34.90 Malignant neoplasm of unspecified part of unspecified bronchus or lung; E87.1 Hypo-osmolality and hyponatremia; T45.1X5A Adverse effect of antineoplastic and immunosuppressive drugs, initial encounter; I10 Essential (primary) hypertension; G47.33 Obstructive sleep apnea (adult) (pediatric); E11.9 Type 2 diabetes mellitus without complications; Z79.84 Long term (current) use of oral hypoglycemic drugs; I25.10 Atherosclerotic heart disease of native coronary artery without angina pectoris; I25.2 Old myocardial infarction; E78.00 Pure hypercholesterolemia, unspecified; J44.9 Chronic obstructive pulmonary disease, unspecified; Z79.899 Other long term (current) drug therapy; Z87.891 Personal history of nicotine dependence; Z90.2 Acquired absence of lung [part of]; Z95.5 Presence of coronary angioplasty implant and graft
CPT/HCPCS: 71045; 80048; 80053; 81003; 81015; 82962; 83880; 83930; 83935; 84300; 85025; 85027; 86803; 96361; 96374; 96375; 96376; 99285